=== PATIENT | female | born 1990 | race Two or more races ===

== ENCOUNTER 2025-05-20 00:58 | Emergency (ER) | payer OTHER ==
[~2025-05-20] VITALS: Ht 162.6 cm; Wt 63.0 kg
[2025-05-20 01:16] VITALS: PULSE 94; RESP 16; O2SAT 97
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
[2025-05-20] MEDS ORDERED: GABA300T4 PO (05:16)
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
[2025-05-20 07:26] VITALS: BP 136/93; PULSE 67; RESP 16; TEMP 98.1; O2SAT 97
== END 2025-05-20 08:43 | disposition home or self-care (01) ==
LOC: EDBD 00:58 → ER 00:58
DX: S02.2XXA Fracture of nasal bones, initial encounter for closed fracture (principal); R07.89 Other chest pain; Y04.0XXA Assault by unarmed brawl or fight, initial encounter; Y93.89 Activity, other specified; Y92.89 Other specified places as the place of occurrence of the external cause; Y99.8 Other external cause status; Z79.899 Other long term (current) drug therapy
CPT/HCPCS: 70450; 70486; 71101; 82947